=== PATIENT | female | born 1930 | race Caucasian/White ===

== ENCOUNTER 2017-06-15 14:45 | Emergency (ER) | payer MEDICARE ==
[~2017-06-15] VITALS: Ht 160 cm; Wt 68.0 kg
[~2017-06-15 14:45] MED LIST: ADULT ASPIRIN E81 MG PO; ALEVE220 M2 PO; AMLODIPINE5 MG PO; CLARITIN10 MG PO; COLCHICINE0.6 M2 PO; FIBE1 PO; LASIX 40 MG TAB40 MG PO; PROMETHAZINE-DM PO; PROMETHAZINE/COD1 ML PO; ULTRAM50 M1 PO
[2017-06-15 16:08] LABS: HEMATOCRIT 34.8 % (37.0-47.0); HEMOGLOBIN 11.4 g/dl (12.0-16.0); IMMATURE GRANULOCYTES 0.2 % (0.0-1.0); MEAN CELL VOLUME 96.7 fL CALC (80.0-100.0); MEAN CORPUSCULAR HGB 31.7 pG CALC (26.0-32.0); MEAN CORPUSCULAR HGB CONC 32.8 g/L CALC (32.0-36.0); NEUT# 5.83 thou/uL (2.00-7.15); RED BLOOD COUNT 3.6 mill/uL (4.20-5.60)
[2017-06-15 16:28] LABS: PROTHROMBIN TIME 11.1 SECONDS (9.0-12.5)
[2017-06-15 16:30] LABS: ALBUMIN 3.8 g/dL (3.2-5.0); ALKALINE PHOSPHATASE 73 u/l (38-126); ANION GAP 13 (6-22 (CALC)); BILIRUBIN, TOTAL 0.7 mg/dL (0.0-1.4); BUN 23 mg/dL (8-23); BUN/CREATININE RATIO 26 (12-20 (CALC)); CALCIUM 9.1 mg/dL (8.4-10.2); CARBON DIOXIDE 24 mmol/l (22-30); CHLORIDE 106 mmol/l (95-108); CREATININE 0.9 mg/dL (0.5-1.0); GFR 59 ML/MIN (>=60 (CALC)); GFR FOR AFR.AMER. > 60 ML/MIN (>=60 (CALC)); GLUCOSE 101 mg/dL (82-115); POTASSIUM 4.4 mmol/l (3.5-5.1); SGOT/AST 22 u/l (9-36); SGPT/ALT 32 u/l (11-66); SODIUM 138 mmol/l (137-146); TOTAL PROTEIN 6.3 g/dL (6.3-8.2)
[2017-06-15] MEDS ORDERED: LOSARTAN POTASS50 MG PO (16:37)
[2017-06-15] MEDS ORDERED: LIQUID B121000 MCG/1 SC (16:38)
[2017-06-15 19:29] VITALS: BP 124/56
== END 2017-06-15 19:29 | disposition short-term general hospital (02) ==
LOC: ED 14:45 → ED-I 16:10 → ED 19:29
PROVIDERS: Emergency Medicine
PROC: 2W3DX1Z Immobilization of Left Lower Arm using Splint (ICD-10-PCS; principal; 2017-06-15)
DX: S72.342A Displaced spiral fracture of shaft of left femur, initial encounter for closed fracture (principal); M97.02XA Periprosthetic fracture around internal prosthetic left hip joint, initial encounter; S52.502A Unspecified fracture of the lower end of left radius, initial encounter for closed fracture; M79.605 Pain in left leg; W01.0XXA Fall on same level from slipping, tripping and stumbling without subsequent striking against object, initial encounter; Y93.89 Activity, other specified; Y92.481 Parking lot as the place of occurrence of the external cause; I10 Essential (primary) hypertension; J44.9 Chronic obstructive pulmonary disease, unspecified

== ENCOUNTER 2017-06-29 11:39 | Inpatient (IN) | payer MEDICARE ==
[~2017-06-29] VITALS: Ht 162.6 cm; Wt 57.0 kg
[2017-06-29] VITALS (7 sets, daily range): BP systolic 93–145; BP diastolic 42–69
[~2017-06-29 11:39] MED LIST changes: +LIQUID B121000 MCG/1 SC; +LOSARTAN POTASS50 MG PO
--- NOTE | 2017-06-29 11:39 | NUR ---
TO ROOM 12 VIA STRETCHER BY EMS
[2017-06-29] MEDS ORDERED: BAYER ASPIRIN E81 MG PO (12:05)
[2017-06-29] MEDS ORDERED: BONE DENSITY PO (12:06)
[2017-06-29] MEDS ORDERED: LORATADINE10 M1 PO (12:07)
[2017-06-29] MEDS ORDERED: COLCHICINE0.6 M2 PO (12:08)
[2017-06-29] MEDS ORDERED: FERR SULFATE325 MG PO (12:09)
[2017-06-29] MEDS ORDERED: LASIX 40 MG40 MG/TAB PO (12:10)
[2017-06-29] MEDS ORDERED: BAYER ASPIRIN325 MG PO (12:16)
[2017-06-29] MEDS ORDERED: GNP STOOL SOFT PO (12:18)
[2017-06-29] MEDS ORDERED: MUCUS RELIEF E600 MG PO (12:21)
[2017-06-29 12:44] LABS: HEMATOCRIT 26.4 % (37.0-47.0); HEMOGLOBIN 8.4 g/dl (12.0-16.0); IMMATURE GRANULOCYTES 0.9 % (0.0-1.0); MEAN CORPUSCULAR HGB 30.5 pG CALC (26.0-32.0); MEAN CORPUSCULAR HGB CONC 31.8 g/L CALC (32.0-36.0); NEUT# 19.87 thou/uL (2.00-7.15); RED BLOOD COUNT 2.75 mill/uL (4.20-5.60); RED CELL DISTRI WIDTH 14.8 % (11.5-15.5)
--- NOTE | 2017-06-29 12:57 | NUR ---
PT NOW WITH IV ESTABLISHED, BLOOD DRAWN BY LAB, LOOSE COUGH HEARD.
[2017-06-29 13:06] LABS: ALBUMIN 3.1 g/dL (3.2-5.0); ALKALINE PHOSPHATASE 333 u/l (38-126); ANION GAP 16 (6-22 (CALC)); BILIRUBIN, TOTAL 1.3 mg/dL (0.0-1.4); BUN 26 mg/dL (8-23); BUN/CREATININE RATIO 34 (12-20 (CALC)); CALCIUM 8.3 mg/dL (8.4-10.2); CARBON DIOXIDE 27 mmol/l (22-30); CHLORIDE 94 mmol/l (95-108); CREATININE 0.8 mg/dL (0.5-1.0); GFR > 60 ML/MIN (>=60 (CALC)); GFR FOR AFR.AMER. > 60 ML/MIN (>=60 (CALC)); GLUCOSE 107 mg/dL (82-115); POTASSIUM 4.6 mmol/l (3.5-5.1); SGOT/AST 25 u/l (9-36); SGPT/ALT 39 u/l (11-66); SODIUM 132 mmol/l (137-146); TOTAL PROTEIN 6.5 g/dL (6.3-8.2)
[2017-06-29 13:18] LABS: MYOGLOBIN 62 ng/mL (0 - 62)
--- NOTE | 2017-06-29 16:45 | NUR ---
PT PROVIDES URINE SPECIMEN BY BEDPAN. PT AWARE OF PENDING ADMISSION.
[2017-06-29 17:01] LABS: URINE BILIRUBIN - DIPSTICK NEGATIVE (NEGATIVE); URINE BLOOD DIPSTICK MODERATE (NEGATIVE); URINE CLARITY SLIGHT CLOUDY; URINE COLOR YELLOW; URINE GLUCOSE - DIPSTICK NEGATIVE (NEGATIVE); URINE KETONE NEGATIVE (NEGATIVE); URINE NITRITE - DIPSTICK NEGATIVE (Negative); URINE PH 5.5 (4.5-8.0); URINE PROTEIN - DIPSTICK 30 mg/dL (NEG-TRACE); URINE SPECIFIC GRAVITY >=1.030; URINE UROBILINOGEN - DIPSTICK 0.2 E.U./dL (0.2)
[2017-06-29 17:07] LABS: URINE LEUK ESTERASE SMALL (NEGATIVE)
[2017-06-29 17:10] LABS: URINE CALCIUM OXALATE CRYSTALS FEW lpf; URINE SQUAMOUS EPITHELIAL CELL MODERATE EPI/hpf (0-FEW)
--- NOTE | 2017-06-29 19:10 | NUR ---
PT TAKEN TO ICU-1 AFTER REPORT PROVIDED TO GARDENIA ARIAS. PT LEAVES ER IN STABLE CONDITION, ACCOMPANIED BY TWO DAUGHTERS.
--- NOTE | 2017-06-29 19:15 | NUR ---
FROM ER TO ICU BED1, ACCOMPANIED BY JORDON RN, AND TWO DAUGHTERS, VIA STRETCHER, LIFE SKILLS COORDINATOR, 2L OF OXYGEN VIA NC, PT ALERT TO NAME AND , SPEECH IS HARD TO UNDERSTAND AT TIMES, CLEAR AND GARBLE, EVEN DAUGHTERS DO NOT UNDERSTAND HER AT TIMES, PT FROM STRETCHER TO ICU BED, WEARING A BRIEF, NOTED A PRESSURE ULCER TO COCCYX, HAS BRACE TO HER LEFT LEG, VELCRO SPLINT TO LEFT WRIST, DAUGHTERS STATED "FELL ON 06/15/17 AND HAD THE LEFT HIP SURGERY ON 06/16/17" "BEFORE SHE FELL, SHE WAS AMBULATORY, WAS NOT ON OXYGEN AT HOME BEFORE THE HIP FRACTURE." WILL CLEAN HER UP AND TAKE PICTURES OF INCISION AND PRESSURE ULCER. MONITOR SHOWS ST, HR 100-115, RESP ARE SHALLOW, INSTRUCTED ON BREATHING TECHNIQUES, PT FOLLOWED COMMANDS, DESATS TO 88% ON MOVEMENT/REPOSITION, AT RESP SATING ON 94-98%, C/O PAIN TO LEFT HIP AT MOVEMENT/REPOSITION, HAS A 20G UPPER RIGHT ARM SALINE LOCK, FLUSHES WELL, FREE OF EDEMA/REDNESS. WILL START NS PER ORDERS. EXPLAINED PLAN OF CARE, SAFETY MEASURES, MED SCHEDULE TO PT/DAUGHTERS, VOICE UNDERSTANDING, WILL CONTINUE TO MONITOR. SEE INTERVENTIONS FOR ASSESSMENT DETAILS.
--- NOTE | 2017-06-29 20:00 | NUR ---
PT TO CTA CHEST AT THIS TIME, VIA BED, BI DATA ARCHITECT, AND PORTABLE OXYGEN AT 2 1/2 LIT VIA NC. MONITOR SHOWS ST HR 114, SPO2 94%, BP 94/52, ACCOMPANIED BY THIS SOILS ENGINEER AND Rachelle ANN RN. DAUGHTERS SAYING GOOD BYE TO PT, STATING "WE ARE COMING BACK."
--- NOTE | 2017-06-29 20:30 | NUR ---
PT BACK FROM FROM CT, TOLERATED ACTIVITY WELL, C/O PAIN IN LEFT HIP, NO PAIN MED ORDERS AT THIS TIME, WILL NOTIFY DR. BELLO ABOUT PT COMPLAINING OF PAIN. PT ASKING FOR WATER, STATES "MY MOUTH IS DRY." PROVIDED SOME WATER, NO SWALLOWING PROBLEMS NOTED, CHANGED UNDERPADS AND BRIEF, NOTED A PRESSURE ULCER IN COCCYX, PLACED DRESSING ON IT, SEE PICTURES IN CHART, CHANGED DRESSING TO LEFT HIP WITH X3ABD SECURED WITH PAPER TAPE, BELEN NOTED TO SURGERY, NO DRAINAGE, EDEMA, OR REDNESS NOTED, CLEAN DRY WELL APPROXIMATED, SEE PICTURE IN CHART, EDUCATED PT ABOUT QH2 TURN, VOICES UNDERSTANDING, BILAT HEEL PROTECTORS IN PLACE, FAMILY REMAIN AT BEDSIDE, NO DISTRESS NOTED, VSS, MONITOR SHOWS ST 100-115 AT THIS TIME, SPO2 93% ON 2 1/1 LITERS OF OXYGEN VIA NC. WILL CONTINUE TO MONITOR.
--- NOTE | 2017-06-29 20:47 | NUR ---
FAMILY BACK AND AT BEDSIDE, PT NODS HEAD "NO" WHEN ASK IF HAVING PAIN. VSS. ST ON MONITOR, HR 114, SPO2, 94%
--- NOTE | 2017-06-29 22:15 | NUR ---
CALLED BY DR. BELLO, NEW ORDERS RECEIVED TO HOLD AM DOSE OF LOVENOX ORDER.
--- NOTE | 2017-06-29 23:10 | NUR ---
TWO DAUGHTERS LEAVING AT THIS TIME.
--- NOTE | 2017-06-29 23:56 | NUR ---
LUANA SANTILLAN AT THIS TIME, PT DENIES PAIN, OFFERED BEDPAN DENIES NEEDS, REMAINS ST ON THE MONITOR, HR 100-110, BP 121/60, RR 16, SPO2 98% ON 2 1/2 LITERS OF OXYGEN VIA NC. NO DISTRESS NOTED, SOME LOOSE COUGH NOTED, NONPRODUCTIVE, CALL ZENG AT REACH WILL CONTINUE TO MONITOR.
[2017-06-30] VITALS (18 sets, daily range): BP systolic 103–148; BP diastolic 48–73
--- NOTE | 2017-06-30 01:05 | NUR ---
PT MOANING, C/O ACHING PAIN TO LEFT HIP, MEDICATED WITH LORTAB, CRUSHED AND GAVE IT WITH SOME PUDDING AFTER PT STATED "THAT PILL IS TOO BIG TO SWALLOW." WILL CONTINUE TO REASSESS.
--- NOTE | 2017-06-30 02:00 | NUR ---
PLACED ON A BEDPAN BY REQUEST, VOIDED 250CC OF CONCENTRATED YELLOW URINE, CHANGED UNDERPADS AND BRIEF. TOLERATED ACTIVITY WELL, VSS, ST-SR HR 90-105, WILL CONTINUE TO MONITOR, NO DISTRESS NOTED.
--- NOTE | 2017-06-30 04:45 | NUR ---
TRAUMA MANAGER IN PT ROOM DRAWING MORNINGS LABS. TOLERATED ACTIVITY WELL. NO DISTRES NOTED, VISS.
[2017-06-30 05:15] LABS: ALKALINE PHOSPHATASE 207 u/l (38-126); BILIRUBIN, TOTAL 0.7 mg/dL (0.0-1.4); BUN 20 mg/dL (8-23); BUN/CREATININE RATIO 31 (12-20 (CALC)); CALCIUM 7.3 mg/dL (8.4-10.2); CARBON DIOXIDE 23 mmol/l (22-30); CREATININE 0.7 mg/dL (0.5-1.0); GFR > 60 ML/MIN (>=60 (CALC)); GFR FOR AFR.AMER. > 60 ML/MIN (>=60 (CALC)); GLUCOSE 84 mg/dL (82-115); POTASSIUM 4.4 mmol/l (3.5-5.1); SGOT/AST 15 u/l (9-36); SGPT/ALT 30 u/l (11-66); SODIUM 133 mmol/l (137-146); TOTAL PROTEIN 4.3 g/dL (6.3-8.2)
[2017-06-30 05:22] LABS: ANION GAP 9 (6-22 (CALC)); CHLORIDE 105 mmol/l (95-108)
[2017-06-30 05:39] LABS: HEMATOCRIT 21.1 % (37.0-47.0); IMMATURE GRANULOCYTES 0.7 % (0.0-1.0); MEAN CELL VOLUME 98.6 fL CALC (80.0-100.0); MEAN CORPUSCULAR HGB 30.4 pG CALC (26.0-32.0); MEAN CORPUSCULAR HGB CONC 30.8 g/L CALC (32.0-36.0); NEUT# 11.11 thou/uL (2.00-7.15); RED BLOOD COUNT 2.14 mill/uL (4.20-5.60); RED CELL DISTRI WIDTH 15.1 % (11.5-15.5)
[2017-06-30 05:42] LABS: HEMOGLOBIN 6.5 g/dl (12.0-16.0)
--- NOTE | 2017-06-30 06:10 | NUR ---
PT APPEARS TO BE SLEEPING WITH EYES CLOSED, EASILY AROUSES TO STIMULI, CONTINUES HAVING SUPERVISOR SHIPPING COUGH, ALERT TO NAME AND DATE OF ONLY, DENIES PAIN, RESPOSITIONED FOR COMFORT, VSS, NOTIFIED DR. BELLO OF LABS RESULTS, WAITING FOR NEW ORDERS.
--- NOTE | 2017-06-30 07:20 | NUR ---
PT RESTING IN BED, ALERT TO NAME BUT CONFUSED ABOUT SURROUNDINGS, L EYELID REMAINS CLOSED, EYE IS CLOUDY AND WHEN ASKED IF THAT EYE IS ALWAYS CLOSED PT STATES "I THINK SO", ORAL CARE PROVIDED PT HAS SMALL SCAB IN R UPPER LIP, DECLINES AM MEAL, WHEN ASKED IF SHE IS HUNGRY STATES "NOT RIGHT NOW", AM ASSESSMENT COMPLETED, SEE INTERVENTIONS, BLE EDEMATOUS LEFT SLIGHTLY > THAN RIGHT, PEDAL PULSE STRONG BIALTERALLY WITH GOOD COLOR, BRISK CAP REFILL NOTED AND EXTREMTIES WARM TO TOUCH. KNEE IMMOBILIZER REMAINS IN PLACE ON LLE, DRESSING TO LEFT HIP CLEAN DRY AND INTACT WITH NO DRAINAGE NOTED, BELEN INTACT INCISION WELL APPROXIMATED, ORDER FOR PT TO RECIEVE 1 UNIT PRBC'S, PT EDUCATED REGARDING NEED, REASON FOR ADMINISTRATION AND POSSIBLE SIDE EFFECTS, GIVES VERBAL CONSENT BUT RELATED TO PT CONFUSION WILL ATTEMPT TO REACH DAUGHTER ETHEL FOR CONSENT PRIOR TO ADMINISTRATION, CALL ZENG WITHIN REACH, REPOSITIONED FOR COMFORT AND BIALTERAL HEEL PROTECTORS IN PLACE.
--- NOTE | 2017-06-30 07:50 | NUR ---
CALL IN TO DAUGHTER ETHEL AT NUMBERS ON FACE SHEET, AWAITING RETURN CALL
--- NOTE | 2017-06-30 09:00 | NUR ---
PT MOANING, WHEN ASKED IF IN PAIN PT STATES YES, WILL MEDICATE ORDERED, COMFORT MEASURES PROVIDED.
--- NOTE | 2017-06-30 09:28 | NUR ---
SECOND CALL PLACED TO DAUGHTER, CONTINUE TO AWAIT CALL BACK, AWARE OF UNSUCCESSFUL ATTEMPT TO REACH DAUGHTER AND SUBSEQUENT DELAY IN TRANSFUSION, CALL ZENG WITHIN REACH
--- NOTE | 2017-06-30 09:45 | NUR ---
PT RESTING COMFORTABLY, OFFERS NO COMPLAINTS, STATES GOOD RELIEF WITH PAIN MEDICATION, BATHED AND LINENS CHANGED, MOUTH CARE PROVIDED, REPOSITIONED ON SIDE WITH HEELS ELEVATED, PT HAS SMALL SCABBED AREA TO LEFT OUTER ASPECT OF ANKLE, BILATERAL HEELS BLANCHABLY REDDENED, HEEL PROTECTORS REMAIN IN PLACE, HYDROCOLLOID DRESSING TO COCCYX AREA REMOVED (COMPROMISED/ROLLED UP) AREA APPEARS TO BE CALLOUSED SKIN. PHOTO'S ON CHART.
--- NOTE | 2017-06-30 10:15 | NUR ---
PT RESTING, SPOKE WITH DAUGHTER ETHEL TO OBATIN PHONE CONSETN FOR BLOOD TRANSFUSION, PT GIVES VERBAL CONSENT, "IF I NEED IT, I NEED IT" WILL CONTINUE TO MONITOR
--- NOTE | 2017-06-30 10:30 | NUR ---
PT BATHED AND LINENS CHANGED, PT TOLERATED WELL.
--- NOTE | 2017-06-30 10:50 | NUR ---
PRBC TRNASFUSION STARTED, VS STABLE, CALL ZENG WITHIN REACH, PT MORE ORIENTED AT THIS TIME,
--- NOTE | 2017-06-30 11:37 | NUR ---
S: GARRY PUGA is a 86 F who presents with possible pneumonia and UTI. O: VS: BP 122/64, P 92, RR 18,T 96.4 W 57 kg, HT 64in, Scr= 0.7, CrCl= 35.5ml/min A: Blood culture is pending Urine culture is pending P: Patient is on vancomycin Vancomycin ordered for pharmacy to dose. Start Vancomycin 1g IV Q24H. Vancomycin trough is drawn before the 4th dose on 07/02/17 at 1400. Vancomycin goal trough is between <15-20 mcg/ml>. Pharmacy will follow and or advise on antibiotics use as needed.
--- NOTE | 2017-06-30 11:45 | NUR ---
PT DECLINED AFTERNOON MEAL, OFFERS NO OTHER COMPLAINTS, CALL ZENG WITHIN REACH.
--- NOTE | 2017-06-30 12:46 | NUR ---
PT REPOSITIONED FOR COMFORT, BILATERAL HEELS REMAIN ELEVATED, TOLERATING BLOOD TRANSFUSION W/O INCIDENT, WILL CONTINUE TO MONITOR.
--- NOTE | 2017-06-30 13:04 | NUR ---
TRANSFUSION COMPLETE EARLIER, PT TOLERATED WELL, CALL ZENG WITHIN REACH. IVF INFUSING AT PRESCRIBED RATE.
--- NOTE | 2017-06-30 13:30 | NUR ---
ALL BELEN IN LEFT HIP REMOVED W/O INCIDENT ORDERED, APPLIED SURE PREP TO TRE WOUND AND APPLIED STERI STRIPS, INCISION REMAINS WELL APPROXIMATED WITH NO DRAINAGE NOTED.
--- NOTE | 2017-06-30 13:35 | NUR ---
PT REPOSITIONED AND TRE CARE PROVIDED AFTER USING BEDPAN, IV SITE BECAME DISLODGED, NEW 22G INTO LAC ON 2nd ATTEMPT WITH GOOD BLOOD RETURN NOTED, PT TOLERATED WELL, PAPER TAPE APPLIED AND SITE SECURED, IVF INFUSING AT PRESCRIBED RATE.
--- NOTE | 2017-06-30 14:06 | NUR ---
P.T. AT BEDSIDE TO WORK WITH PATIENT, FAMILY MEMBERS PRESENT IN ROOM.
--- NOTE | 2017-06-30 15:20 | NUR ---
FAMILY REMAINS AT BEDSIDE, PLACED ON BEDPAN AT PT REQUEST, CALL ZENG WITHIN REACH.
--- NOTE | 2017-06-30 15:42 | NUR ---
REPOSITIONED AFTER BED PLUMMER REMOVED AND TRE CARE PROVIDED, FAMILY MEMBERS AT BEDSIDE, CALL ZENG WITHIN REACH.
--- NOTE | 2017-06-30 16:31 | NUR ---
PT CALLED MUTIPLE TIMES IN LAST FEW MINUTES REZGRDING REPOSITIONING, ATTEMPTED TO EXPLAIN THE IMPORTANCE OF PRESSURE OFF LOADING RELATED TO COCCYX WOUND AND HEELS PT VERBALIZES UNDERSTANDING BUT INSISTS ON HEAD OF BED BEING ELEVATED AND POSITIONED SUPINE WITH NO PRESSURE OFFLOADING, DOES ALLOW BILATERAL HEELS ELEVATED
--- NOTE | 2017-06-30 17:35 | NUR ---
PT REPOSITIONED AT THIS TIME ON R AID WEWITH BILAT HELS ELEVATED, AGAIN WITH DAUGHTERS AT BEDSIDE REINFORCED IMPORTANCE OF POSITION CHANGE FOR PRESSURE OFFLOADING, CALL ZENG WITHIN REACH
--- NOTE | 2017-06-30 18:17 | NUR ---
PT DECLINED PMMEAL, OFFERED ANOTHER ENSURE AND TAKEN, DAUGHTERS AT BEDSIDE TO ASSIST PRN WITH INTAKE (PER THEM), WILL CONTINUE TO MONITOR
--- NOTE | 2017-06-30 18:50 | NUR ---
REPORT FROM JUANA MAO. ASSUMED PT. CARE.
--- NOTE | 2017-06-30 19:15 | NUR ---
PT. PLACED ON BEDPAN AT THIS TIME. APPROX 150 CC OF CONCENTRATED URINE OUT AT THIS TIME. TRE-CARE PROVIDED. PT. CLEANSED OF SCANT REMNANT STOOL. CALL LIGHT PLACED BACK WITHIN REACH. FAMILY AT BEDSIDE AT THIS TIME. WILL CONTINUE TO MONITOR.
--- NOTE | 2017-06-30 19:36 | NUR ---
RT. AT BEDSIDE AT THIS TIME TO ADMINISTER NEB TREATMENT.
--- NOTE | 2017-06-30 21:15 | NUR ---
ASSISTED PT. TO BEDPAN. REPOSITIONED FOR COMFORT. PERICARE PROVIDED. RESPS REMAIN SHALLOW, EVEN AND UNLABORED. VSS. IV FLUIDS CONTINUE TO INFUSE. 1+ LOWER EXT EDEMA NOTED AND MILD EDEMA NOTED TO UPPER ARMS. CALL LIGHT REMAINS WITHIN REACH.
--- NOTE | 2017-06-30 23:05 | NUR ---
ASSISTED TO BEDPAN AGAIN AT THIS TIME. AGAIN APPROX 100 CC CONCENTRATED URINE OUT AT THIS TIME. VSS. REPOSITIONED FOR COMFORT. PT. ENCOURAGED TO ATTEMPT TO SLEEP. WILL CONTINUE TO MONITOR.
[2017-07-01] VITALS (9 sets, daily range): BP systolic 114–147; BP diastolic 49–83
--- NOTE | 2017-07-01 01:00 | NUR ---
APPROX 100 CC CONCENTRATED URINE OUT AT THIS TIME. PERICARE PROVIDED AND CLEANSED OF SCANT STOOL. BOWEL GAS NOTED UPON TURNING PATIENT. REDNESS NOTED TO RT. INNER THIGH. CLEANSED AND DRIED, POWDER APPLIED. PT. MOVED TO AIR MATTRESS AT THIS TIME. REPOSITIONED FOR COMFORT. DENIES COMPLAINTS. WATER PROVIDED AT THIS TIME.
--- NOTE | 2017-07-01 03:04 | NUR ---
PT. RESTING IN BED WITH EYES CLOSED. RESPS SHALLOW, EVEN, UNLABORED. SPO2 STABLE. SKIN WARM AND DRY. VSS. CALL LIGHT REMAINS WITHIN REACH. WILL CONTINUE TO ASSESS.
--- NOTE | 2017-07-01 04:05 | NUR ---
LAB AT BEDSIDE TO DRAW PT. PT. EASILY AROUSABLE. DENIES COMPLAINTS OF SOB OR PAIN AT THIS TIME. RESPS REMAINS EVEN, UNLABORED AND SHALLOW. VITALS STABLE. SPO2 IS 98% ON 2L NC. DENIES COMPLAINTS OF PAIN OR NEED. CALL LIGHT WITHIN REACH.
--- NOTE | 2017-07-01 05:54 | NUR ---
NEB TREATMENT IN PROGRESS. PT. REPOSITION TO LT. SIDE AT THIS TIME. PROVIDED WITH BLANKET PER HER REQUEST. SCANT STOOL NOTED AT THIS TIME. PT. PLACED ON BEDPAN. APPROX 200 CC OF URINE OUT AT THIS TIME. UNDERPADS CHANGED AND PERICARE PROVIDED. CALL LIGHT REMAINS WITHIN REACH. VSS.
[2017-07-01 06:00] LABS: HEMATOCRIT 26.1 % (37.0-47.0); HEMOGLOBIN 8.3 g/dl (12.0-16.0); IMMATURE GRANULOCYTES 1.9 % (0.0-1.0); MEAN CELL VOLUME 96.7 fL CALC (80.0-100.0); MEAN CORPUSCULAR HGB 30.7 pG CALC (26.0-32.0); MEAN CORPUSCULAR HGB CONC 31.8 g/L CALC (32.0-36.0); NEUT# 10.72 thou/uL (2.00-7.15); RED BLOOD COUNT 2.7 mill/uL (4.20-5.60); RED CELL DISTRI WIDTH 15.7 % (11.5-15.5)
[2017-07-01 06:20] LABS: BUN 19 mg/dL (8-23); BUN/CREATININE RATIO 29 (12-20 (CALC)); CALCIUM 7.8 mg/dL (8.4-10.2); CARBON DIOXIDE 28 mmol/l (22-30); CREATININE 0.6 mg/dL (0.5-1.0); GFR > 60 ML/MIN (>=60 (CALC)); GFR FOR AFR.AMER. > 60 ML/MIN (>=60 (CALC)); GLUCOSE 77 mg/dL (82-115); POTASSIUM 4.7 mmol/l (3.5-5.1); SODIUM 136 mmol/l (137-146)
[2017-07-01 06:22] LABS: ANION GAP 9 (6-22 (CALC)); CHLORIDE 104 mmol/l (95-108)
--- NOTE | 2017-07-01 07:20 | NUR ---
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 KNEE IMMOBILIZER REMAINS IN PLACE ON LLE, LEFT HIP INCISION CLEAN DRY AND INTACT WITH NO DRAINAGE NOTED, STERI STRIPS INTACT INCISION WELL APPROXIMATED, REPOSITIONED FOR COMFORT AND BIALTERAL HEEL PROTECTORS IN PLACE.
--- NOTE | 2017-07-01 07:30 | NUR ---
PT ON SPECIALITY MATTRESS, SCHEDULED TURN ASSIST ENGAGED, WILL MONITOR PT TOLERANCE.
--- NOTE | 2017-07-01 07:30 | NUR ---
PT PLACED ON BED PLUMMER, CONTINENT OF URINE AND TRE CARE PROVIDED HAS REDDENED AREA IN R GROIN AREA KEPT CLEAN AND DRY, WILL NOTIFY MD ON AM ROUNDS
--- NOTE | 2017-07-01 07:55 | NUR ---
SET UP ASSIST PROVIDED FOR AM MEAL, PT REQUIRE FREQUENT ENCOURAGEMENT TO BE INDEPENDENT WITH TASKS, CALL ZENG WITHIN REACH.
--- NOTE | 2017-07-01 08:53 | NUR ---
PT PLACED ON BED PLUMMER
--- NOTE | 2017-07-01 09:10 | NUR ---
PT CONTINENT OF SOFT GREEN/BLACK STTOL, TRE CARE PROVIDED AND REPOSITIONED FOR COMFORT, CALL ZENG WITHIN REACH
--- NOTE | 2017-07-01 10:59 | NUR ---
PT ON BEDPAN AND CONTINENT OF ADE URINE, TRE CARE PROVIDED, MD AWARE OF RASH IN R GROIN, NEW ORDERS REC'D. TURN ASSIST MATTRESS REMAINS IN USE AN ENGAGED.
--- NOTE | 2017-07-01 11:00 | NUR ---
IVF DECREASED TO KVO AT BEDSIDE BY
--- NOTE | 2017-07-01 11:32 | NUR ---
IN TO SEE PATIENT, PLAN OF CARE DISCUSSED INCLUDING PLANNED TRANSFER TO MEDICAL FLOOR.
--- NOTE | 2017-07-01 11:47 | NUR ---
SET UP ASSIST PROVIDED FOR AFTERNOON MEAL
--- NOTE | 2017-07-01 13:29 | NUR ---
PT RESTING, DAUGHTER AT BEDSIDE, TALKING WITH PT ABOUT POTENTIAL D/C AND REHAB TO [place] IF POSSIBLE FOR BETTER FAMILY ACCESS, PT VERBALIZES UNDERSTANDING, CALL KARRI CORDERO REACH, PT CONTINUES TO REQUIRE FREQUENT ENCOURAGMENT TO BE INDEPENDENT WITH SELF NEEDS, SPECIALITY MATTRESS REMAINS IN USE WITH AUTO TURN ENGAGED.
--- NOTE | 2017-07-01 14:12 | NUR ---
OShiraz. AT BEDSIDE WORKED WITH PATIENT, CASE MGMT AT BEDSIDE
--- NOTE | 2017-07-01 15:05 | NUR ---
DAUGHTERS REMAIN AT BEDSIDE, PT OFFERS NO NEW COMPLAINTS COMPLAINS OF GENERALIZED ACHING, WILL MEDICATE ORDERED. AWARE OF PLANNED TRANSFER TO MED SURG ROOM
--- NOTE | 2017-07-01 15:35 | NUR ---
PT TRANSFERRED TO MED SURG ROOM 281 ON [address] VIA BED, ALL BELONGINGS BROUGHT WITH PATIENT AND DAUGHTERS WITH PT WELL. MEDICATED FOR PAIN PRIOR TO TRANSFER. CALL ZENG WITHIN REACH, PT FREQUENTLY ASKS FOR HEAD OF BED TO BE ELEVATED GREATER THAN TURN ASSIST ALLOWS, PT REPEATEDLY REMINDED THAT SHE REQUIRES THE TURN ASSIST BETWEEN MEALS TO PREVENT FURTHER BREAKDOWN ON COCCYX, VERBALIZES UNDERSTANDING.
--- NOTE | 2017-07-01 17:00 | NUR ---
PT REPOSITIONED FOR COMFORT, AGAIN REMINDED OF THE IMPORTANCE OF TURN ASSIST WITH SPECIALITY MATTRESS, CALL ZENG WITHIN REACH, FAMILY AND VISITORS AT BEDSIDE.
--- NOTE | 2017-07-01 18:26 | NUR ---
SET UP ASSIST PROVIDED EARLIER FOR PM MEAL, DAUGHTERS REMAIN AT BEDSIDE
--- NOTE | 2017-07-01 19:00 | NUR ---
RECEIVED CHANGE OF SHIFT REPORT FROM JUANA MAO. PATIENT LYING IM BED AND APPEARS NOT TO BE IN ANY APPARENT ACUTE DISTREES. PATIENT KEON HAVING PAIN. FAMILY AT BEDSIDE. WILL CONTINUE TO MONITOR.
--- NOTE | 2017-07-01 19:45 | NUR ---
ASSISTED PATIENT TO BEDPAN
--- NOTE | 2017-07-02 | NUR ---
PT LYING IN BED WITH EYES CLOSED AND APPEARS TO BE ASLEEP. NO APPARENT ACUTE DISTRESS NOTED.
[2017-07-02 00:30] VITALS: BP 144/76
--- NOTE | 2017-07-02 04:00 | NUR ---
NO APPARENT ACUTE CHANGES NOTED IN PATIENT'S CONDITION.
[2017-07-02 04:10] VITALS: BP 156/87
[2017-07-02 06:05] LABS: HEMATOCRIT 29.4 % (37.0-47.0); HEMOGLOBIN 9.3 g/dl (12.0-16.0); IMMATURE GRANULOCYTES 1.3 % (0.0-1.0); MEAN CELL VOLUME 96.7 fL CALC (80.0-100.0); MEAN CORPUSCULAR HGB 30.6 pG CALC (26.0-32.0); MEAN CORPUSCULAR HGB CONC 31.6 g/L CALC (32.0-36.0); NEUT# 9.8 thou/uL (2.00-7.15); RED BLOOD COUNT 3.04 mill/uL (4.20-5.60); RED CELL DISTRI WIDTH 15.6 % (11.5-15.5)
[2017-07-02 06:18] LABS: PROTHROMBIN TIME 10.8 SECONDS (9.0-12.5)
[2017-07-02 06:29] LABS: ANION GAP 11 (6-22 (CALC)); BUN 16 mg/dL (8-23); BUN/CREATININE RATIO 28 (12-20 (CALC)); CALCIUM 8.2 mg/dL (8.4-10.2); CARBON DIOXIDE 29 mmol/l (22-30); CHLORIDE 102 mmol/l (95-108); CREATININE 0.6 mg/dL (0.5-1.0); GFR > 60 ML/MIN (>=60 (CALC)); GFR FOR AFR.AMER. > 60 ML/MIN (>=60 (CALC)); GLUCOSE 84 mg/dL (82-115); MAGNESIUM 1.9 mg/dL (1.6-2.3); POTASSIUM 4.8 mmol/l (3.5-5.1); SODIUM 137 mmol/l (137-146)
--- NOTE | 2017-07-02 07:45 | NUR ---
ASSESSMENT IS COMPLETED: IV SITE IS FREE FROM REDNESS OR EDEMA. NO DISTRESS NOTED. TELE MONITOR IN PLACE. CONTINUE TO OBSERVE AND MONITOR.
[2017-07-02 09:15] VITALS: BP 135/55
--- NOTE | 2017-07-02 12:00 | NUR ---
PT IS VISITING WITH FAMILY NO DISTRESS NOTED. IV SITE IS FREE FROM REDNESS OR EDEMA.
[2017-07-02] MEDS ORDERED: IPRATROPIU0.5 MG/3 M IN (13:05)
[2017-07-02] MEDS ORDERED: FLORASTOR250 M1 PO (13:05)
[2017-07-02] MEDS ORDERED: AUGMENTIN875TAB PO (13:05)
[2017-07-02] MEDS ORDERED: DOXYCYCL HYC100 MG PO (13:05)
[2017-07-02] MEDS ORDERED: PANTOPRAZOLE SO40 M1 PO (13:05)
[2017-07-02] MEDS ORDERED: LOTRISONE CREAM15 G1 TOP (13:05)
[2017-07-02] MEDS ORDERED: LORTAB 5/3255 MG PO (13:07)
--- NOTE | 2017-07-02 15:05 | NUR ---
IV SITE DISCONTINUED CATHETER INTACT NO REDNESS OR EDEMA.
--- NOTE | 2017-07-02 15:10 | NUR ---
O.T. RECEIVED PT. IN BED WITH BROTHER AND FAMILY PRESENT. PT. JUST RECEIVED NEWS OF HER D/C TO REHAB TODAY AND WAS MOTIVATED FOR TREATMENT. "COME ON LET'S GO." PT. INSTRUCTED IN DIAPHRAGMATIC BREATHING EXERCISES WITH BILLY UE SHOULDER FLEXION TO OPEN UP CHEST/RIBS AND FACILITATE INHALATION AND PT. PERFORMED 3 SETS X 5 WITH REST BREAKS BETWEEN. PATIENT AGREED TO GETTING OUT OF BED AND PATIENT PERFORMED SUPINE TO SIT WITH MOD A. PT. SAT UP AT EDGE OF BED AND PERFORMED SIMPLE GROOMING (COMBING HAIR X 2 MIN) AND RE-INSTRUCTED IN TTWB LLE AND O.T. DEMONSTRATED. O.T. DONNED PT'S SOCKS WITH TOT A. PT. PERFORMED SIT <-> STAND X 2 ATTEMPTS WITH MOD A AND PERFORMED SPT WITH MAX A TO RECLINER. PT. STOOD X 30 SEC WITH MAX A TO MAINTAIN TTWB LLE AND BALANCE WITH PT. HOLDING 1/2 WALKER WITH R HAND WHILE RN ATTENDED TO PATIENT IN STANDING FOR D/C PROCEDURES. PT. SAT IN RECLINER WITH MOD A AND R.N. CONTINUED HER SESSION WITH PT. AND RECOMMENDED LEAVING PT. UP IN CHAIR FOR A LITTLE BIT. PT. TOLERATED TREATMENT WELL. D/C PT. TO REHAB TO CONTINUE O.T. TREATMENT TODAY PER 'S ORDERS.
--- NOTE | 2017-07-02 15:22 | NUR ---
SPOKE WITH TYRA ARIAS AND ALFRED ARIAS. GIVING REPORT. TO FABIEN PETERS PAYSON. WAITING FOR TRANSPORT.
--- NOTE | 2017-07-02 16:03 | NUR ---
PM: TRANSFER TRAINING DONE CHAIR TO BED. PATIENT MAINTAINED TOW TOUCH STATUS [place] ASSISTED WITH THE TRANSFER. SHE IS ABLE TO BEAR WGT ON THE RIGHT LEG WITHOUT IT BUCKLING. WORKED ON BED TRANSFERS ENCOURAGING HER TO USE THE RIGHT LEG TO ASSIST AND SHE DOES SIGNIFICANTLY.NEEDS ENCOURAGEMENT. SHE APPEARED TO TOLERATE TREATMENT WELL AND WAS LEFT COMFORTABLE IN THE BED WITH THE SIDE RAILS UP AND HER CALL LIGHT IN PLACE. FAMILY IS WITH HER. SHE IS BEING TRANSFERRED TO REHAB TODAY.
--- NOTE | 2017-07-02 16:03 | NUR ---
PT IS BEING TRANSPORTED TO [place] VIA [facility] . LEAVING NOW.
== END 2017-07-02 16:01 | DRG 871 ==
LOC: ED 11:39 → ED-I 14:52 → ED 17:10 → ICU 17:11 → MS2 17:11
PROVIDERS: Emergency Medicine; Nurse Practitioner Family; ADMIT Internal Medicine; ATTEND Internal Medicine
PROC: 30233N1 Transfusion of Nonautologous Red Blood Cells into Peripheral Vein, Percutaneous Approach (ICD-10-PCS; principal; 2017-06-30)
DX: A41.9 Sepsis, unspecified organism (principal); J96.01 Acute respiratory failure with hypoxia; J44.0 Chronic obstructive pulmonary disease with (acute) lower respiratory infection; D62 Acute posthemorrhagic anemia; J21.9 Acute bronchiolitis, unspecified; R65.20 Severe sepsis without septic shock; M19.90 Unspecified osteoarthritis, unspecified site; I10 Essential (primary) hypertension; S72.91XD Unspecified fracture of right femur, subsequent encounter for closed fracture with routine healing; M97.01XD Periprosthetic fracture around internal prosthetic right hip joint, subsequent encounter; W19.XXXD Unspecified fall, subsequent encounter; Z47.1 Aftercare following joint replacement surgery; Z96.642 Presence of left artificial hip joint
CPT/HCPCS: J1650; J2060; P9016; Q9967; S0164